=== PATIENT | female | born 1970 | race Caucasian/White ===

== ENCOUNTER → 2021-03-06 11:27 | Outpatient (CLI) | payer MEDICAID, SELFPAY ==
--- NOTE | 2021-03-06 | EMB_PTH ---
PATIENT: TIFFANIE RIVAS LOC: [facility] #:[id number] AGE/SX: 54/F ROOM: RE03/06/[address]: Dr. Cynthia Love MD : 1970 BED: DIS: SPEC #: [id number] RECD: 03/06/21 12:39 STATUS: JOANIE SARA #: [id number] SAUD: 03/06/21 00:[address]: Cynthia Love DEPT: SURGICAL PATHOLOGY RECD BY: Genet Thornton ENTERED: 03/07/21 09:19 SP TYPE: ENDOM BX/C CARMEN DR: No Primary Care Phys Tissues: Endometrium, NOS Procedures: Surgery Specimen Level IV HEADER OPERATION: Endometrial biopsy PRE-OP DIAGNOSIS: Abnormal uterine bleeding TISSUE SUBMITTED: Endometrial biopsy MICROSCOPIC DIAGNOSIS Endometrial biopsy: Secretory endometrium. JOSE:raquel 03/07/2021 MICROSCOPIC DESCRIPTION Slides are reviewed. GROSS DESCRIPTION Received is one container labeled with the patient's name and not further designated. The specimen consists of multiple irregular fragments of gomez-pink soft tissue that in aggregate measure 2.5 x 2.5 x 0.2 cm. The specimen is totally submitted in one cassette. / SJ:raquel 03/06/21 TC:4 CPT: 02819
[2021-03-06 10:21] VITALS: BMI 26.6
[2021-03-06 11:52] LABS: Absolute Lymphocyte Count 1.71 X10^3/uL (0.83-4.51); Absolute Neutrophil Count 4.1 X10^3/uL (2.0-7.7); Basophil# 0.05 X10^3/uL; Basophil% 0.8 % (0-1); Eosinophil# 0.09 X10^3/uL; Eosinophils% 1.4 % (0-5); Hematocrit 42.5 % (37-47); Hemoglobin 13.8 g/dL (12.0-15.0); Lymphocyte # 1.71 X10^3/ul (0.83-4.51); Lymphocyte % 26.4 % (19-41); Mean Corp Hgb Conc 32.5 g/dL (32-36); Mean Corpuscular Hgb 27.7 pg (27.0-32.0); Mean Corpuscular Volume 85.3 fL (81-99); Mean Platelet Vol. 9.9 fl (6.2-12.0); Monocyte# 0.46 X10^3/uL; Monocyte% 7.1 % (0-10); NRBC Flagged by Analyzer 0 % (0-5); Neutrophil # 4.13 X10^3/uL (2.7-7.7); Neutrophil % 63.8 % (47-70); Platelet Count 285 K/mm3 (150-450); RBC Distribution Width CV 12.7 % (11.6-14.6); RBC Distribution Width SD 39.2 fl (35.1-43.9); Red Blood Count 4.98 M/mm3 (4.2-5.4); White Blood Count 6.5 K/mm3 (4.4-11.0)
[2021-03-09 03:06] LABS: Dilute Prothrombin Time (dPT) 31.5 sec (0.0-55.0); Dilute Russell Viper Venom 29.3 sec (0.0-47.0); Thrombin Time 17.6 sec (0.0-23.0); dPT Confirm Ratio 1.08 Ratio (0.00-1.40)
[2021-03-09 08:06] LABS: Anti-Cardiolipin Ab, IgA, Qn < 9 APL U/mL (0-11); Anti-Cardiolipin Ab, IgG, Qn < 9 GPL U/mL (0-14); Anti-Cardiolipin Ab, IgM, Qn < 9 MPL U/mL (0-12); Beta-2-Glycoprotein I IgA <9 (0-25); Beta-2-Glycoprotein I IgG <9 (0-20); Beta-2-Glycoprotein I IgM <9 (0-32); Interpretation Comment: (.)
== END ==
PROVIDERS: Referring Provider Obstetrics & Gynecology; Visit Provider Obstetrics & Gynecology
DX: N93.9 Abnormal uterine and vaginal bleeding, unspecified (principal); N96 Recurrent pregnancy loss
CPT/HCPCS: 36415; 85025; 86146; 86147; 88305

== ENCOUNTER → 2021-03-18 07:44 | Outpatient (CLI) | payer MEDICAID, SELFPAY ==
[2021-03-06 10:21] VITALS: BMI 26.6
--- NOTE | 2021-03-18 07:48 | US_ITS ---
INDICATION: Irregular bleeding. COMPARISON: None. TECHNIQUE: Transabdominal and transvaginal scanning was performed with grayscale and color Doppler imaging. FINDINGS: Uterus: Measures 10.06 x 7.29 x 7.91 cm., With a total volume of 30 3 mL uterus is anteflexed. 4 uterine leiomyomas are identified. The largest of which is subserosal in position measuring 2.91 x 1.8 x 2.1 cm in size. There are 3 smaller uterine leiomyomas are noted adjacent to an exam and partly compressing the endometrial echo stripe and these measure 2.26 x 2.18 and 1.5 x 1.6 and 1.6 x 1.7 cm respectively Endometrium: Measures 10 mm. And is partially compressed by 3 uterine leiomyomas as described above. Right ovary measures 3.4 x 3.5 x 1.9 cm. In this ovary contains a physiologic cyst Left ovary measures 4.1 x 3.7 x 2.2 cm. Free fluid: None. Other findings: None of significance. US/Pelvic (Non ) IMPRESSION: For uterine leiomyomas are identified, 3 of which a tracker stripe. Electronically Signed: Jp Morton DO at 11:35 EDT Tel , Service support ,
--- NOTE | 2021-03-18 07:48 | US_ITS ---
INDICATION: Irregular bleeding. COMPARISON: None. TECHNIQUE: Transabdominal and transvaginal scanning was performed with grayscale and color Doppler imaging. FINDINGS: Uterus: Measures 10.06 x 7.29 x 7.91 cm., With a total volume of 30 3 mL uterus is anteflexed. 4 uterine leiomyomas are identified. The largest of which is subserosal in position measuring 2.91 x 1.8 x 2.1 cm in size. There are 3 smaller uterine leiomyomas are noted adjacent to an exam and partly compressing the endometrial echo stripe and these measure 2.26 x 2.18 and 1.5 x 1.6 and 1.6 x 1.7 cm respectively Endometrium: Measures 10 mm. And is partially compressed by 3 uterine leiomyomas as described above. Right ovary measures 3.4 x 3.5 x 1.9 cm. In this ovary contains a physiologic cyst Left ovary measures 4.1 x 3.7 x 2.2 cm. Free fluid: None. Other findings: None of significance. US/Transvaginal Non- IMPRESSION: For uterine leiomyomas are identified, 3 of which a tracker stripe. Electronically Signed: Jp Morton DO at 11:35 EDT Tel , Service support ,
== END ==
PROVIDERS: Referring Provider Obstetrics & Gynecology; Visit Provider Obstetrics & Gynecology
DX: N93.9 Abnormal uterine and vaginal bleeding, unspecified (principal)
CPT/HCPCS: 76830; 76856

== ENCOUNTER 2021-05-20 07:02 | Day surgery (SDC) | payer BC, MEDICAID, SELFPAY ==
[2021-03-20 16:22] VITALS: BMI 26.6
[2021-05-19 09:06] LABS: Absolute Lymphocyte Count 1.25 X10^3/uL (0.83-4.51); Absolute Neutrophil Count 4.8 X10^3/uL (2.0-7.7); Basophil# 0.04 X10^3/uL; Basophil% 0.6 % (0-1); Eosinophil# 0.14 X10^3/uL; Eosinophils% 2.1 % (0-5); Hematocrit 43.7 % (37-47); Hemoglobin 13.8 g/dL (12.0-15.0); Lymphocyte # 1.25 X10^3/ul (0.83-4.51); Lymphocyte % 18.6 % (19-41); Mean Corp Hgb Conc 31.6 g/dL (32-36); Mean Corpuscular Hgb 26.6 pg (27.0-32.0); Mean Corpuscular Volume 84.2 fL (81-99); Mean Platelet Vol. 10.5 fl (6.2-12.0); Monocyte# 0.45 X10^3/uL; Monocyte% 6.7 % (0-10); NRBC Flagged by Analyzer 0 % (0-5); Neutrophil # 4.83 X10^3/uL (2.7-7.7); Neutrophil % 71.7 % (47-70); Platelet Count 275 K/mm3 (150-450); RBC Distribution Width CV 12.3 % (11.6-14.6); RBC Distribution Width SD 37.2 fl (35.1-43.9); Red Blood Count 5.19 M/mm3 (4.2-5.4); White Blood Count 6.7 K/mm3 (4.4-11.0)
[2021-05-19 09:31] LABS: AST(SGOT) 12 U/L (15-37); Alanine Aminotransfer ALT/SGPT 11 U/L (13-56); Albumin, Serum 3.5 g/dL (3.2-5.0); Alkaline Phosphatase 61 U/L (45-117); Anion Gap 5 (5-15); BUN 17 mg/dL (7-18); BUN/Creat Ratio 17.5 RATIO (10-20); Calcium,Total 8.8 mg/dL (8.5-10.1); Chloride 105 mmol/L (98-107); Creatinine, Serum 0.97 mg/dL (0.55-1.02); EST Glomerular Filtration Rate 65 mL/min (>60); Est Glom Filt Rate - Afr Amer 78 mL/min (>60); Globulin 3.6 g/dL (2.2-4.2); Glucose 243 mg/dL (74-106); Potassium 4.4 mmol/L (3.5-5.1); Protein, Total 7.1 g/dL (6.4-8.2); Sodium Level 138 mmol/L (136-145)
[2021-05-19 09:41] LABS: Thyroid Stim Hormone (TSH) 0.84 uIU/mL (0.358-3.74)
[2021-05-19 09:51] LABS: Hemoglobin A1c 7.2 % (3.8-5.6)
[2021-05-20] VITALS (11 sets, daily range): BP systolic 127–162; BP diastolic 66–94; PULSE 57–70; RESP 14–16; TEMP 35.6–36.4; O2SAT 96–100; BMI 28.6
--- NOTE | 2021-05-20 | HYST_PTH ---
PATIENT: TIFFANIE RIVAS LOC: [facility] U#:[id number] AGE/SX: 50/F ROOM: RE05/20/[address]: Dr. Cynthia Love MD : 1970 BED: DIS: 05/20/2021 SPEC #: [id number] RECD: 05/20/21 13:00 STATUS: JOANIE SARA #: [id number] SAUD: 05/20/21 00:[address]: Cynthia Love DEPT: SURGICAL PATHOLOGY RECD BY: Costa Tian ENTERED: 05/21/21 09:55 SP TYPE: HYSTERECT OTHR DR: Dr. Bhupendra Woodruff MD Tissues: Uterus, NOS Procedures: Surgery Specimen Level V HEADER OPERATION: Hysterectomy, LAVH, salpingectomy PRE-OP DIAGNOSIS: Uterine fibroid, abnormal uterine bleeding TISSUE SUBMITTED: Uterus, bilateral fallopian tubes MICROSCOPIC DIAGNOSIS Uterus and bilateral fallopian tubes, hysterectomy and bilateral salpingectomy: Cervix ? mild chronic inflammation. Endometrium ? secretory endometrium. Myometrium ? intramural leiomyomas (largest measuring 2.5 cm in diameter). - Adenomyosis. Bilateral fallopian tubes - no pathologic diagnosis. Paratubal cyst. SJ:rg 05/22/2021 COMMENT Please make reference to previous specimen ([id number]) endometrial biopsy with diagnosis of ?secretory endometrium.? MICROSCOPIC DESCRIPTION Slides are reviewed. GROSS DESCRIPTION Received in fixative is one container labeled with the patient's name and designated uterus, bilateral fallopian tubes. The specimen consists of a hysterectomy specimen in multiple pieces consisting of uterus with cervix and bilateral fallopian tubes attached to one of the largest pieces. The uterus with cervix weighs 189 gm. The largest piece of uterus shows attached bilateral fallopian tubes and consists of portion of uterus and cervix measuring 13 x 6 x 6 cm. Detached two pieces of uterus measures in aggregate 6.5 x 4 x 1.5 cm. One of the detached pieces consists of portion of cervix and lower uterine segment and measures 7 x 3 x 1.5 cm. Orientation could not be made due to fragmented nature of the specimen. The endocervical canal in the largest piece of uterus measures 4.5 cm in length. The endocervical mucosa is unremarkable. Portion of identifiable ectocervix is also unremarkable. The largest piece of uterus also shows portion of endometrial cavity which measures 5 cm in length and up to 2.5 cm in width. The identifiable endometrium measures 0.3 cm in thickness. No mass lesion is identified. Sections of the uterine wall reveal multiple lobular masses. The largest mass measures 2.5 cm in diameter. Sections of these masses reveal gomez whorled cut surfaces without areas of hemorrhage, necrosis or cystic degeneration. The uterine wall measures up to 3.5 cm in thickness. The fallopian tubes could not be oriented as right or left due to fragmented nature of the specimen. One of the fallopian tubes measure 7 cm in length and up to 0.5 cm in diameter. The fimbrial end is identified. Sections reveal unremarkable cut surfaces. The second fallopian tube measures 6 cm in length and 0.7 cm in diameter. The fimbrial end is identified. A paratubal cyst is noted measuring 0.6 cm in greatest dimension. It is filled with clear fluid. Sections reveal unremarkable cut surfaces. Roof Assembler sections are submitted in 11 cassettes as follows: 1 & 2 - cervix, 3-6 - uterine wall including endomyometrium, 7 - largest nodular mass, 8 - second largest nodular mass, 9 - largest nodular mass, 10??one fallopian tube, 11 - second fallopian tube and paratubal cyst. / JOSE:raquel 05/21/21 TC: 1 CPT: 87046
--- NOTE | 2021-05-20 04:53 | HP.PCM_ITS ---
History and Physical Date of Admission: 05/20/21 Intake Vital Signs 05/12/21 14:07 Height 5 ft 4 in Weight: 172 lb 2 oz BMI 29.5 BP 158/90 H Intake Visit Reasons: ONI LUI Investigative Analyst Required: No Allergies latex Allergy (Verified 05/12/21 14:07) Unknown Penicillins Allergy (Verified 05/12/21 14:07) Rash Imddrhn-Hzl-Jxh Reductase Inhibitor Allergy (Verified 05/12/21 14:07) Rash Medications levothyroxine 50 mcg tablet PO 30 Days #30 02/04/18 [History Confirmed 05/12/21] subcutaneous insulin pump #1 ea 08/28/20 [History Confirmed 05/12/21] insulin lispro 100 unit/mL subcutaneous pen 5 unit SUBCUT TID 03/06/21 [History Confirmed 05/12/21] Post menopausal: No Patient : No : No [facility] Medical History Asthma delivery delivered Diabetes Diabetes HTN (hypertension) Thyroid disease Family History Other Diabetes Hypercholesterolemia Hypertension Social History Smoking Status: Never smoker details: social caffeine: Yes do you feel safe at home: Yes additional social history: Lukasz Michelle Patient works at [employer] Details: TIFFANIE RIVAS is a 50 year old who presents for preop visit she is having a hysterectomy for AUB and fibroids. Female Reproductive History Menopausal Symptoms: No hot flashes, No night sweats, No difficulty concentrating and Yes change in libido Pregancy History 5 Elective abortions Hx Para 2 Spontaneous abortions 3 Hx # Term Pregnancies Ectopic pregnancies Hx # Pregnancies Multiple births # of living children 2 ROS Const Constitutional: Reports weight gain; Denies fatigue, night sweats or weight loss ENT ENT: Reports system reviewed and no additional complaints, except as documented Cardio Card: Denies chest pain Resp Resp: Denies cough or dyspnea GI GI: Reports as per HPI; Denies constipation, nausea or vomiting : Reports as per HPI; Denies hot flashes, nipple discharge, vaginal discharge, vaginal dryness, vaginal odor or vaginal pruritus Musc Musc: Denies arthralgias, back pain or muscle weakness Skin Skin/Breast: Denies alopecia, change in hair, dry skin, breast mass, breast pain, breast skin changes or nipple discharge Neuro Neuro: Reports system reviewed and no additional complaints, except as documented Psych Psych: Reports system reviewed and no additional complaints, except as documented and change in libido; Denies difficulty concentrating Endo Endo: Denies cold intolerance, excessive sweating, heat intolerance or polydipsia Ap/Lymph Hematologic/Lymphatic: Denies easy bleeding, Denies easy bruising and Denies lymphadenopathy Exam Const General: cooperative, healthy appearing, comfortable, no acute distress and well developed Orientation: alert [facility] Head: normal to inspection and normocephalic Ears: hearing grossly normal bilaterally and external ears normal Nose: external nose normal and nares normal Face and sinus: normal facial exam Neck Neck: normal visual inspection and no lymphadenopathy Thyroid: thyroid normal Chest Chest palpation & inspection: normal inspection of the chest Resp Effort & Inspection: normal respiratory effort Auscultation: clear to auscultation bilaterally Cardio Rate: regular rate Rhythm: regular rhythm Heart Sounds: S1 normal and S2 normal GI Inspection: normal to inspection and non-distended Palpation: soft and no hepatosplenomegaly Urethra: no discharge Musc Other: gross motor intact no deficits, full bilateral strength Skin General: no rashes or lesions noted Neuro General: patient alert, patient awake, moves all extremities and no focal motor deficits Motor: muscle tone normal throughout Extrem General: normal to inspection and no pedal edema Psych Appearance: grossly normal Mental Status: mental status grossly normal Affect: normal affect Speech and Movement: speech and movement normal Coding Level of Care Code No Charge Diagnoses Diabetes E11.9 Uterine fibroid D25.9 Abnormal uterine bleeding N93.9 Assessment and Plan Assessment and Plan (1) Diabetes: Status: Acute Comment: prior to surgery run insulin pump at 40% temporarily for 24 hours. resume when able to eat (2) Uterine fibroid: Status: Acute Comment: enlarged uterus multiple fibroids (3) Abnormal uterine bleeding: Status: Acute Comment: failed hormonal treatments with Dr Sandoval. fibroids. recommend [facility] Plan - Dr. Cynthia Love MD: After discussing the patient's diagnosis and treatment plan options, patient wishes to proceed with surgical management. I have discussed with the patient the risks, benefits, and alternatives of the procedure which include but are not limited to risks of anesthesia, bleeding, infection, possible damage to bowel, bladder, or surrounding vasculature which could lead to additional surgery to evaluate any complications. Patient agrees to procedure and wishes to proceed. ACOG/uptodate references given for additional information regarding procedure. UPDATE- I have seen the patient and performed any clinically relevant updates to the history and physical exam. Cynthia Love MD
[2021-05-20 07:46] LABS: Bedside Glucose 288 mg/dL (70-110)
[2021-05-20 07:46] LABS: Internal QC Validated? YES +Cl - CLEAR BKGD; Pregnancy, Urine Negative Negative
[2021-05-20] MEDS: Lactated Ringers 1,000 ML 40 ML IV (07:53)
[2021-05-20] MEDS: Scopolamine 1mg/72hr Patch 1 PATCH TD (07:58)
[2021-05-20] MEDS: Celecoxib 200 MG Capsule 400 MG PO (07:59)
[2021-05-20] MEDS: Gabapentin 600 MG Tablet PO (07:59)
[2021-05-20] MEDS: Acetaminophen 500 MG Tablet 1000 MG PO ×2 (07:59→13:45)
[2021-05-20] MEDS: dexAMETHasone 10 MG/ML Vial 8 MG IV (08:00)
[2021-05-20] MEDS: Enoxaparin 40 MG/0.4 ML Syringe SC (08:00)
[2021-05-20] MEDS: Phenazopyridine 95 MG Tablet 190 MG PO (08:00)
[2021-05-20] MEDS: Vasopressin 20 UNITS/ML Vial (11:00)
[2021-05-20] MEDS: Bupivacaine 0.25% 30 ML Vial (11:30)
--- NOTE | 2021-05-20 11:54 | OP.PCM_ITS ---
Problems Associated Problem List Diagnoses (1) Abnormal uterine bleeding: (2) Uterine fibroid: (3) Diabetes: Report of Operation Date of Procedure: 05/20/21 Pre-Operative Diagnosis: See problem list Post-Operative Diagnosis: same plus extensive vesicouterine scar tissue Surgery/Procedure Performed:: LAVHBS cystoscopy Description of Surgical Findings:: Dense vesicouterine adhesions enlarged fibroid uterus limited vaginal access cardiopulmonary supervisor: Kelly Hutchinson Type of Anesthesia: General Special Medications: FloSeal Specimen's removed: uterus, tubes Drains: hunter Estimated Blood Loss (mL): 150 Fluids Replaced: crystalloid Description of Procedure: Patient received preoperative antibiotics and SCDs were on preoperatively. Patient was taken back to the operating room and placed in the dorsal lithotomy position. General anesthesia was induced and patient was prepped and draped in normal sterile fashion. Uterine manipulator was placed inside the uterus and Hunter catheter placed in the bladder. The umbilicus was grasped with towel clamps and an intraumbilical incision was made after injecting with quarter percent Marcaine and a Veress needle entered into the abdomen confirmed to be intra-abdominal with a low opening pressure. Abdomen was insufflated with CO2 gas and the Veress needle removed and the 5 mm trocar was placed under direct visualization without complication. Right and left lower quadrants were transilluminated and injected with quarter percent Marcaine and 5 mm ports placed under direct visualization. Pelvis was well visualized see operative findings for additional information. Bilateral fallopian tubes were identified and transected with the LigaSure device across the mesosalpinx to the level of the utero-ovarian ligament which was also transected with the LigaSure device. The broad ligament was opened up by transecting the round ligament bilaterally and skeletonizing the uterine vessels bilaterally and creating a bladder flap using the LigaSure device. Extensive scar tissue was encountered which was taken down with hydrodissection and sharp dissection with scissors and monopolar energy. The uterine arteries were transected bilaterally with good visualization of the bladder and the ureters were seen to be inferior lateral to the operative area. Attention was then paid to the vaginal portion of the procedure and the cervix was grasped with Vern clamps and circumferentially injected with dilute vasopressin. A circumferential incision was made and the vaginal mucosa was mobilized off posteriorly and the cul-de-sac entered into sharply and a longneck speculum placed. The anterior cul-de-sac was then identified and entered into sharply. The uterosacral ligaments were clamped cut and suture ligated with 0 Monocryl bilaterally followed by the cardinal ligaments which were clamped cut and suture ligated bilaterally with 0 Monocryl. The uterus serially descended and was removed without difficulty. Pelvic sidewall pedicles were checked and noted to have excellent hemostasis. The vaginal mucosa was reapproximated incorporating the posterior peritoneum. This was reapproximated using 0 Vicryl tyfavm-jz-jcgmc sutures. Excellent hemostasis was noted. The pelvis and cul-de-sac were well visualized and after additional cautery with LigaSure no significant active bleeding noted but some raw areas were seen on the peritoneum and therefore FloSeal was applied. The cystoscopy was then performed and bilateral ureteral strong spray was noted and the bladder was noted to have no abnormality or lesions seen. Hunter catheter was replaced and then attention paid to the abdominal portion of the procedure again. Pressure was taken down and the areas visualized and noted of excellent hemostasis. All ports were removed under direct visualization without complication and the abdomen was desufflated of air. The instruments were removed from the abdomen and the vaginal sweep was negative. Port sites on the abdomen were closed with 4-0 Monocryl interrupted sutures and Steri's and windows were applied. She was awoken and taken recovery in stable condition. Grafts/Implants Used: none Complications none Admit VTE Documentation VTE Present on Admission: No VTE Mechan Device Prophylaxis: SCD's VTE Pharm Prophylaxis ordered?: Yes Multi Select Codes Urinary/Genital Urinary/Genital CPT Codes: 82615 Cystoscopy and 98782 LAVH+BS/O <250gr Uterus
[2021-05-20] MEDS: Ketorolac 30 MG/ML Syringe IV (12:00)
[2021-05-20] MEDS: Lactated Ringers 1,000 ML 70 ML IV (12:20)
--- NOTE | 2021-05-20 14:41 | DCINST_ITS ---
Discharge Instructions Diet Discharge Diet: No restrictions Activity May resume sexual activity in: 6 weeks Weight Bearing Status: Full weight bearing Dressing / Incision Call your doctor if your incision/area has: Continuous Slow Oozing, Sudden Increased Bleeding, Increased Pain/ Swelling, Increased Redness and Foul Smelling Discharge Call your doctor if you observe: Fever of 101 or Higher, Using more than 1 pad per hour, Shortness of breath, Chest pain and Uncontrolled pain Suture Line Care: Avoid Pulling/Pushing and Avoid Pinching/Bending Remove Dressing in: 1 week (if present) Cleanse incision/area with: Soap & Water and Keep Dressing Clean & Dry Follow Up Care Please Follow Up With: Cynthia Love MD When: Call to make an appointment with your doctor for a postop visit in 2 and 6 weeks. Test Results: Test results from this visit will be discussed in further detail at your follow-up appointment, if applicable. Discharge Plan Admission Primary Reason for Your Visit: vaginal hysterectomy Attending Provider: Cynthia Love Primary Care Provider: Bhupendra Woodruff Discharge Orders/Prescriptions Prescriptions: New naproxen 250 MG tablet 250 - 500 mg PO Q8H PRN PRN (Reason: MILD PAIN) Qty: 30 RF: 1 oxycodone-acetaminophen [Endocet] 5-325 mg tablet 1 tab PO Q4H PRN (Reason: pain) 7 Days Qty: 20 RF: 0 Continued levothyroxine 50 mcg tablet 50 mcg PO DAILY 30 Days Qty: 30 RF: 0 (DME) subcutaneous insulin pump Misc See Rx Instructions .ROUTE .MEDSUPPLY Qty: 1 RF: 0 multivitamin Tablet 1 tab PO DAILY RF: 0 insulin lispro 100 unit/mL solution 3 unit continuous IV infusion DAILY RF: 0 cholecalciferol (vitamin D3) [Vitamin D3] 25 mcg (1,000 unit) Tablet,Chewable 25 mcg PO DAILY RF: 0 Other Ambulatory Orders: 12 Lead EKG (Routine) Timeframe: [id number] Facility: [facility] - Location: Cardiovascular Services Ordered By: Dr. Cynthia Love Referrals / Follow Up: Bhupendra Woodruff MD [Primary Care Provider] - Disposition Disposition (needs filled in before D/C Order can be placed): Home, Self Care
[2021-05-20 14:52] LABS: Hematocrit 38.2 % (37-47); Hemoglobin 12.6 g/dL (12.0-15.0); Mean Corpuscular Hgb 27.2 pg (27.0-32.0); Mean Corpuscular Volume 82.3 fL (81-99); Mean Platelet Vol. 10.3 fl (6.2-12.0); Platelet Count 240 K/mm3 (150-450); RBC Distribution Width CV 12.4 % (11.6-14.6); RBC Distribution Width SD 37.2 fl (35.1-43.9); Red Blood Count 4.64 M/mm3 (4.2-5.4); White Blood Count 12.3 K/mm3 (4.4-11.0)
[2021-05-20] MEDS: oxyCODONE 5 MG Tablet PO (15:42)
--- NOTE | 2021-05-26 12:31 | EKG12_ITS ---
Test Reason : PRE OP Blood Pressure : / mmHG Vent. Rate : 070 BPM Atrial Rate : 070 BPM P-R Int : 126 ms QRS Dur : 052 ms QT Int : 364 ms P-R-T Axes : 057 084 068 degrees QTc Int : 393 ms Normal sinus rhythm Low voltage QRS Septal infarct , age undetermined Abnormal ECG Confirmed by JACE MINER, CONSUELO ([id number]), newspaper copy editor YUN GARCIA ([id number]) on 05/26/2021 12:35:05 PM Referred By: Cynthia Love Confirmed By:LEONCIO MCCORMICK MD
== END 2021-05-20 16:32 | disposition home or self-care (01) ==
LOC: SDC 07:03 → AC 07:04
PROVIDERS: Anesthesiology; PCP Family Medicine; Referring Provider Obstetrics & Gynecology; Visit Provider Obstetrics & Gynecology
PROC: 0UT9FZZ Resection of Uterus, Via Natural or Artificial Opening With Percutaneous Endoscopic Assistance (ICD-10-PCS; CPT 58552; principal; 2021-05-20 08:35)
DX: D25.1 Intramural leiomyoma of uterus (principal); N93.9 Abnormal uterine and vaginal bleeding, unspecified; I10 Essential (primary) hypertension; E11.9 Type 2 diabetes mellitus without complications; K21.9 Gastro-esophageal reflux disease without esophagitis; E07.9 Disorder of thyroid, unspecified; E78.00 Pure hypercholesterolemia, unspecified; J45.909 Unspecified asthma, uncomplicated; Z79.4 Long term (current) use of insulin; Z79.899 Other long term (current) drug therapy
CPT/HCPCS: 00944; 58552; 36415; 80053; 81025; 82962; 83036; 83735; 84443; 85025; 85027; 86850; 86900; 86901; 87426; 88307; 93005; C9803; J7120; J2405

== ENCOUNTER → 2021-06-09 | Outpatient (CLI) | payer BC, MEDICAID, SELFPAY | END | disposition home or self-care (01) | LOC: LABSPEC 12:12 | PROVIDERS: PCP Family Medicine; Referring Provider Nurse Practitioner Women's Health; Visit Provider Nurse Practitioner Women's Health | DX: R39.15 Urgency of urination (principal) | CPT/HCPCS: 87077; 87086; 87088; 87186 ==

== ENCOUNTER → 2021-06-23 | Outpatient (CLI) | payer BC, MEDICAID, SELFPAY | END | disposition home or self-care (01) | LOC: LABSPEC 13:47 | PROVIDERS: PCP Family Medicine; Visit Provider Obstetrics & Gynecology | DX: N89.8 Other specified noninflammatory disorders of vagina (principal) | CPT/HCPCS: 87070; 87077; 87205 ==

== ENCOUNTER → 2021-06-25 09:20 | Outpatient (CLI) | payer BC, MEDICAID, SELFPAY ==
--- NOTE | 2021-06-25 09:23 | BI_ITS ---
MAMMOGRAPHY - BILATERAL SCREENING REASON FOR EXAM: Female, 50 years old. Routine annual screening examination. PERTINENT HISTORY: Non-contributory. TECHNIQUE: Digital bilateral breast brandi (3D mammographic acquisition) in the CC and MLO projections. 2-D mediolateral oblique (MLO) and craniocaudad (CC) views of both breasts were obtained. CAD: Full Field Digital Mammography with Computer Added Detection was performed. COMPARISON: Comparison is made with prior outside examination dated 03/06/2020. FINDINGS: Breast Composition: The breasts are heterogeneously dense, which may obscure small masses. There is a stable 1.8 cm x 1.2 cm well-defined nodule in the inferior medial retroareolar region of the right breast. Correlation with ultrasound is recommended. No other significant abnormalities are identified. BI/SCRN MAMM (CAD)W/BRANDI BILAT IMPRESSION: Stable 1.8 cm x 1.2 cm well-defined nodule in the inferior medial retroareolar region of the right breast. Correlation with ultrasound is recommended. ASSESSMENT CATEGORY: BIRADS Category 0: Incomplete. Need additional imaging evaluation. A letter regarding these results will be sent to the patient by the facility within 30 days. Approximately 10% of breast cancers are not detected by mammography. A normal mammogram should not delay biopsy of a clinically suspicious abnormality. [id number] Electronically Signed: Fredrick Trujillo MD at 10:26 EST , Service support ,
== END ==
PROVIDERS: PCP Family Medicine; Referring Provider Obstetrics & Gynecology; Visit Provider Obstetrics & Gynecology
DX: Z12.31 Encounter for screening mammogram for malignant neoplasm of breast (principal)
CPT/HCPCS: 77063; 77067

== ENCOUNTER → 2021-06-27 10:52 | Outpatient (CLI) | payer BC, MEDICAID, SELFPAY ==
--- NOTE | 2021-06-27 10:54 | US_ITS ---
STUDY: ULTRASOUND BREAST - RIGHT REASON FOR EXAM: Female, 50 years old. Abnormal screening mammogram. TECHNIQUE: Axial and longitudinal images of the RIGHT breast were performed with a high resolution ultrasound transducer. # OF IMAGES: 21 COMPARISON: Comparison is made with prior mammogram dated 06/25/2021. FINDINGS: RIGHT Breast: The mammographic abnormality corresponds to a 2.1 cm x 1.7 cm x 1 cm hypoechoic slightly irregular nodule at the 3 o''clock position the breast in the retroareolar region. Biopsy is recommended. US/Breast Limited Unilateral IMPRESSION: 2.1 cm x 1.7 cm by 1 cm hypoechoic solid nodule with lobulated margins at the 3 o''clock position of the breast in the retroareolar region. Biopsy recommended. ASSESSMENT CATEGORY: BIRADS Category 4: Suspicious - Biopsy Should Be Considered. A letter regarding these results will be sent to the patient by the facility within 30 days. Electronically Signed: Fredrick Trujillo MD at 13:33 EST , Service support ,
== END ==
PROVIDERS: PCP Family Medicine; Referring Provider Obstetrics & Gynecology; Visit Provider Obstetrics & Gynecology
DX: N63.10 Unspecified lump in the right breast, unspecified quadrant (principal)
CPT/HCPCS: 76642

== ENCOUNTER → 2021-07-04 | Outpatient (CLI) | payer BC, MEDICAID, SELFPAY ==
--- NOTE | 2021-07-04 14:30 | BRBX_PTH ---
PATIENT: TIFFANIE RIVAS LOC: [facility] U#:[id number] AGE/SX: 50/F ROOM: RE07/04/[address]: Dr. Chino Salgado MD : 1970 BED: DIS: 07/04/2021 SPEC #: [id number] RECD: 07/04/21 15:53 STATUS: JOANIE SARA #: [id number] SAUD: 07/04/21 14:[address]: Chino Salgado DEPT: SURGICAL PATHOLOGY RECD BY: Genet Thornton ENTERED: 07/07/21 09:09 SP TYPE: BREAST BX OTHR DR: Dr. Bhupendra Woodruff MD Tissues: Right breast, NOS Procedures: Surgery Specimen Level IV HEADER OPERATION: Right breast biopsy PRE-OP DIAGNOSIS: Right breast mass TISSUE SUBMITTED: Right breast tissue MICROSCOPIC DIAGNOSIS Right breast, core biopsy: Fragments of hyalinized fibroadenoma. AM:raquel 07/08/2021 MICROSCOPIC DESCRIPTION Slides are reviewed. GROSS DESCRIPTION Received in fixative is one container labeled with the patient's name and designated right breast. The specimen consists of multiple elongated fragments of gomez-yellow fibroadipose tissue that in aggregate measure 2 x 1.5 x 0.1 cm. The entire specimen is submitted in one cassette. / SJ:rg 07/07/21 TC:5 CPT: 69020
== END | disposition home or self-care (01) ==
PROVIDERS: PCP Family Medicine; Referring Provider Surgery; Visit Provider Surgery
DX: D24.1 Benign neoplasm of right breast (principal)
CPT/HCPCS: 88305

== ENCOUNTER 2021-10-15 09:54 | Outpatient (CLI) | payer BC, MEDICAID, SELFPAY ==
[2021-10-15 11:03] LABS: EXAGEN MAILED SPECIMEN
[2021-10-15 11:58] LABS: Color, Urine Yellow (Yellow); Glucose, Dipstick 1000 mg/dl (Normal); Ketone-Dipstick Negative (Negative); Leukocyte Esterase-Dipstick Negative /ul (Negative); Nitrite-Dipstick Negative (Negative); Occult Blood-Urine Negative /ul (Negative); Protein-Dipstick Negative (Negative); Urine Bilirubin Dipstick Negative (Negative); Urine Clarity Clear (Clear); Urine Urobilinogen Normal (Normal)
[2021-10-15 12:06] LABS: Partial Thromboplast Time 30.1 Seconds (24.1-36.2); Prothrombin Time (Protime)PT. 12.2 SECONDS (11.7-14.9)
[2021-10-15 12:11] LABS: Protein:Creat Ratio 112 mg/g CRE (0-200)
[2021-10-15 12:18] LABS: ALB/GLOB Ratio 1.1 RATIO (0.9-2.4); AST(SGOT) 13 U/L (15-37); Alanine Aminotransfer ALT/SGPT 14 U/L (13-56); Albumin, Serum 3.5 g/dL (3.2-5.0); Alkaline Phosphatase 68 U/L (45-117); Anion Gap 3 (5-15); BUN 15 mg/dL (7-18); BUN/Creat Ratio 16.8 RATIO (10-20); CRP < 2.90 mg/L (0.0-3.0); Calcium,Total 8.3 mg/dL (8.5-10.1); Chloride 105 mmol/L (98-107); Creatinine, Serum 0.89 mg/dL (0.55-1.02); EST Glomerular Filtration Rate 71 mL/min (>60); Est Glom Filt Rate - Afr Amer 86 mL/min (>60); Globulin 3.2 g/dL (2.2-4.2); Glucose 194 mg/dL (74-106); Potassium 4.2 mmol/L (3.5-5.1); Protein, Total 6.7 g/dL (6.4-8.2); Sodium Level 139 mmol/L (136-145)
[2021-10-15 12:23] LABS: Erythrocyte Sedimentation Rate 7 mm/hr (0-30)
[2021-10-15 12:24] LABS: Absolute Lymphocyte Count 1.41 X10^3/uL (0.83-4.51); Absolute Neutrophil Count 3.9 X10^3/uL (2.0-7.7); Basophil# 0.03 X10^3/uL; Basophil% 0.5 % (0-1); Eosinophil# 0.11 X10^3/uL; Eosinophils% 1.9 % (0-5); Hematocrit 43.4 % (37-47); Hemoglobin 14.9 g/dL (12.0-15.0); Lymphocyte # 1.41 X10^3/ul (0.83-4.51); Lymphocyte % 24.1 % (19-41); Mean Corp Hgb Conc 34.3 g/dL (32-36); Mean Corpuscular Hgb 28.9 pg (27.0-32.0); Mean Corpuscular Volume 84.1 fL (81-99); Mean Platelet Vol. 10.8 fl (6.2-12.0); Monocyte% 6.8 % (0-10); NRBC Flagged by Analyzer 0 % (0-5); Neutrophil # 3.88 X10^3/uL (2.7-7.7); Neutrophil % 66.2 % (47-70); Platelet Count 278 K/mm3 (150-450); RBC Distribution Width CV 13.1 % (11.6-14.6); RBC Distribution Width SD 39.9 fl (35.1-43.9); Red Blood Count 5.16 M/mm3 (4.2-5.4); White Blood Count 5.9 K/mm3 (4.4-11.0)
[2021-10-15 12:52] LABS: Hepatitis B Surface Antibody Non-Reactive; Hepatitis B Surface Antigen Non-Reactive (Nonreactive); Hepatitis C Antibody Non-Reactive (Nonreactive)
[2021-10-17 02:07] LABS: Dilute Prothrombin Time (dPT) 35.2 sec (0.0-47.6); Dilute Russell Viper Venom 31.1 sec (0.0-47.0); Hexagonal Phase Phospholipid 4 sec (0-11); PTT-LA 34.3 sec (0.0-51.9); Thrombin Time 17.6 sec (0.0-23.0); dPT Confirm Ratio 0.98 Ratio (0.00-1.34)
[2021-10-17 15:21] LABS: Interpretation Comment: (.); Thrombin Time 17.6 sec (0.0-23.0)
== END 2021-10-15 23:59 | disposition home or self-care (01) ==
LOC: MTLAB 09:56
PROVIDERS: PCP Family Medicine; Referring Provider Internal Medicine Rheumatology; Visit Provider Internal Medicine Rheumatology
DX: M06.4 Inflammatory polyarthropathy (principal); E10.9 Type 1 diabetes mellitus without complications; R76.8 Other specified abnormal immunological findings in serum; M72.2 Plantar fascial fibromatosis; L80 Vitiligo; K58.1 Irritable bowel syndrome with constipation
CPT/HCPCS: 36415; 80053; 81002; 82570; 84156; 85025; 85598; 85610; 85652; 85670; 85730; 86140; 86706; 86803; 87340

== ENCOUNTER → 2022-01-07 | Outpatient (CLI) | payer BC, MEDICAID, SELFPAY ==
--- NOTE | 2022-01-07 13:19 | BI_ITS ---
MAMMOGRAPHY - UNILATERAL SCREENING: RIGHT BREAST REASON FOR EXAM: Female, 51 years old. Routine annual screening examination (unilateral). PERTINENT HISTORY: Non-contributory. TECHNIQUE: Digital examination. Mediolateral oblique (MLO) and craniocaudad (CC) views of the breast were obtained. CAD: CAD was performed on this study. COMPARISON: 06/25/2021 FINDINGS: Breast Composition: The breasts are heterogeneously dense, which may obscure small masses. No change in 1.5 cm oval obscured equal density mass in the lower inner quadrant of the right breast at anterior depth which has been biopsied with a marking clip. No new dominant mass. No suspicious calcifications. No other significant abnormalities are identified. BI/DIAG MAMM W/CAD, UNILAT IMPRESSION: Stable bilateral screening mammogram. ASSESSMENT CATEGORY: BIRADS Category 2: Benign. A letter regarding these results will be sent to the patient by the facility within 30 days. FOLLOW UP RECOMMENDATION: Yearly follow up mammogram recommended. (A) [id number] Approximately 10% of breast cancers are not detected by mammography. A normal mammogram should not delay biopsy of a clinically suspicious abnormality. [id number] Electronically Signed: Arden Polanco MD at 14:05 EDT ,
== END | disposition home or self-care (01) ==
LOC: OPBI 13:17
PROVIDERS: PCP Family Medicine; Visit Provider Surgery
DX: N63.10 Unspecified lump in the right breast, unspecified quadrant (principal)
CPT/HCPCS: 77061; 77065; G0279

== ENCOUNTER → 2022-01-20 | Outpatient (CLI) | payer BC, MEDICAID, SELFPAY ==
[2022-01-20 17:12] LABS: Absolute Lymphocyte Count 1.81 X10^3/uL (0.83-4.51); Absolute Neutrophil Count 4.1 X10^3/uL (2.0-7.7); Basophil# 0.05 X10^3/uL; Basophil% 0.8 % (0-1); Eosinophil# 0.17 X10^3/uL; Eosinophils% 2.6 % (0-5); Hematocrit 40.7 % (37-47); Lymphocyte # 1.81 X10^3/ul (0.83-4.51); Lymphocyte % 27.3 % (19-41); Mean Corp Hgb Conc 34.4 g/dL (32-36); Mean Corpuscular Hgb 28.9 pg (27.0-32.0); Mean Corpuscular Volume 83.9 fL (81-99); Mean Platelet Vol. 10.7 fl (6.2-12.0); Monocyte# 0.51 X10^3/uL; Monocyte% 7.7 % (0-10); NRBC Flagged by Analyzer 0 % (0-5); Neutrophil # 4.08 X10^3/uL (2.7-7.7); Neutrophil % 61.3 % (47-70); Platelet Count 263 K/mm3 (150-450); RBC Distribution Width CV 12.3 % (11.6-14.6); RBC Distribution Width SD 37.2 fl (35.1-43.9); Red Blood Count 4.85 M/mm3 (4.2-5.4); White Blood Count 6.6 K/mm3 (4.4-11.0)
[2022-01-20 18:01] LABS: ALB/GLOB Ratio 1.1 RATIO (0.9-2.4); AST(SGOT) 18 U/L (15-37); Alanine Aminotransfer ALT/SGPT 18 U/L (13-56); Albumin, Serum 3.3 g/dL (3.2-5.0); Alkaline Phosphatase 74 U/L (45-117); Anion Gap 4 (5-15); BUN 18 mg/dL (7-18); BUN/Creat Ratio 20.8 RATIO (10-20); Calcium,Total 8.8 mg/dL (8.5-10.1); Chloride 105 mmol/L (98-107); Creatinine, Serum 0.86 mg/dL (0.55-1.02); EST Glomerular Filtration Rate 74 mL/min (>60); Est Glom Filt Rate - Afr Amer 89 mL/min (>60); Globulin 3.1 g/dL (2.2-4.2); Glucose 133 mg/dL (74-106); Potassium 4.1 mmol/L (3.5-5.1); Protein, Total 6.4 g/dL (6.4-8.2); Sodium Level 139 mmol/L (136-145)
== END | disposition home or self-care (01) ==
LOC: LAB 15:44
PROVIDERS: PCP Family Medicine; Referring Provider Internal Medicine Rheumatology; Visit Provider Internal Medicine Rheumatology
DX: M06.4 Inflammatory polyarthropathy (principal); E10.9 Type 1 diabetes mellitus without complications; R76.8 Other specified abnormal immunological findings in serum; M72.2 Plantar fascial fibromatosis; L80 Vitiligo; K58.1 Irritable bowel syndrome with constipation; E03.9 Hypothyroidism, unspecified; E78.5 Hyperlipidemia, unspecified; F32.A Depression, unspecified; Z86.2 Personal history of diseases of the blood and blood-forming organs and certain disorders involving the immune mechanism
CPT/HCPCS: 36415; 80053; 85025

== ENCOUNTER → 2023-02-03 | Outpatient (CLI) | payer BC, MEDICAID, SELFPAY ==
--- NOTE | 2023-02-03 15:38 | BI_ITS ---
MAMMOGRAPHY - BILATERAL SCREENING REASON FOR EXAM: Female, 52 years old. Routine annual screening examination. PERTINENT HISTORY: Sister with breast cancer. Right breast biopsy. TECHNIQUE: Digital bilateral breast brandi (3D mammographic acquisition) in the CC and MLO projections. 2-D mediolateral oblique (MLO) and craniocaudad (CC) views of both breasts were obtained. CAD: Full Field Digital Mammography with Computer Added Detection was performed. COMPARISON: Diagnostic right breast mammogram from 01/07/2022. Screening mammogram from 06/25/2021. Right breast diagnostic ultrasound from 06/27/2021. FINDINGS: Breast Composition: The breasts are heterogeneously dense, which may obscure small masses. Stable 2.0 x 1.4 cm mass in the right lower inner breast with biopsy marker in place. No new suspicious masses or suspicious calcifications. No other significant abnormalities are identified. There has been no significant change since the prior study. BI/SCRN MAMM (CAD)W/BRANDI BILAT IMPRESSION: Stable bilateral screening mammogram. Yearly follow-up mammogram recommended. (A) ASSESSMENT CATEGORY: BIRADS Category 2: Benign. A letter regarding these results will be sent to the patient by the facility within 30 days. Approximately 10% of breast cancers are not detected by mammography. A normal mammogram should not delay biopsy of a clinically suspicious abnormality. Electronically Signed: Nelson Norton DO at 15:39 EDT ,
== END | disposition home or self-care (01) ==
LOC: OPBI 15:36
PROVIDERS: PCP Family Medicine; Referring Provider Obstetrics & Gynecology; Visit Provider Obstetrics & Gynecology
DX: Z12.31 Encounter for screening mammogram for malignant neoplasm of breast (principal); Z80.3 Family history of malignant neoplasm of breast
CPT/HCPCS: 77063; 77067

== ENCOUNTER → 2023-07-20 | Outpatient (CLI) | payer BC, SELFPAY ==
--- NOTE | 2023-07-20 08:53 | BI_ITS ---
MAMMOGRAPHY - BILATERAL DIAGNOSTIC REASON FOR EXAM: Female, 52 years old. One month history of right retroareolar breast pain. PERTINENT HISTORY: Sister with breast cancer. Prior right ultrasound-guided breast biopsy. TECHNIQUE: Digital bilateral breast haroon (3D mammographic acquisition) in the CC and MLO projections. 2-D mediolateral oblique (MLO) and craniocaudad (CC) views of both breasts were obtained. CAD: Full Field Digital Mammography with Computer Added Detection was performed. COMPARISON: Comparison is made with prior study February 03, 2023 and January 07, 2022. FINDINGS: Breast Composition: The breasts are heterogeneously dense, which may obscure small masses. Stable 2 cm x 1.4 cm well-defined nodule in the retroareolar region of the right breast. A tissue clip marker seen within it. No other significant abnormalities are identified. There has been no significant change since the prior study. BI/DIAG MAMM W/CAD, BILAT IMPRESSION: Stable bilateral diagnostic mammogram. One year follow-up recommended. (A) ASSESSMENT CATEGORY: BIRADS Category 2: Benign. A letter regarding these results will be sent to the patient by the facility within 30 days. Approximately 10% of breast cancers are not detected by mammography. A normal mammogram should not delay biopsy of a clinically suspicious abnormality. Electronically Signed: Fredrick Trujillo MD at 12:21 EST ,
--- NOTE | 2023-07-20 09:36 | US_ITS ---
STUDY: ULTRASOUND BREAST - RIGHT REASON FOR EXAM: Female, 52 years old. Right breast tenderness. TECHNIQUE: Axial and longitudinal images of the RIGHT breast were performed with a high resolution ultrasound transducer. # OF IMAGES: 31 COMPARISON: Comparison is made with prior mammogram dated July 20, 2023 and prior sonogram of the right breast dated June 27, 2021. FINDINGS: RIGHT Breast: There is a 1.9 cm x 1.8 cm x 1 cm well-defined hypoechoic nodule at the 3:00 position of the breast at 1 cm from nipple. A tissue clip marker is seen within it. This most likely represents a fibroadenoma. US/Breast Limited Unilateral IMPRESSION: The mammographic abnormality corresponds to a well-defined 1.9 cm x 1.8 cm x 1 cm hypoechoic nodule with a tissue clip marker within it. ASSESSMENT CATEGORY: BIRADS Category 2: Benign. A letter regarding these results will be sent to the patient by the facility within 30 days. Electronically Signed: Fredrick Trujillo MD at 12:39 EST ,
== END | disposition home or self-care (01) ==
PROVIDERS: PCP Family Medicine; Referring Provider Obstetrics & Gynecology; Visit Provider Obstetrics & Gynecology
DX: N64.4 Mastodynia (principal)
CPT/HCPCS: 76642; 77062; 77066; G0279

== ENCOUNTER → 2024-04-03 | Outpatient (CLI) | payer OTHER, SELFPAY ==
[2024-04-03 10:07] LABS: ALB/GLOB Ratio 1.1 RATIO (0.9-2.4); AST(SGOT) 17 U/L (15-37); Alanine Aminotransfer ALT/SGPT 17 U/L (13-56); Albumin, Serum 3.3 g/dL (3.2-5.0); Alkaline Phosphatase 70 U/L (45-117); Anion Gap 1 (5-15); BUN 16 mg/dL (7-18); BUN/Creat Ratio 19.3 RATIO (10-20); Calcium,Total 8.9 mg/dL (8.5-10.1); Chloride 109 mmol/L (98-107); Cholesterol 200 mg/dL (200); Creatinine, Serum 0.83 mg/dL (0.55-1.02); EST Glomerular Filtration Rate 77 mL/min (>60); Est Glom Filt Rate - Afr Amer 93 mL/min (>60); Globulin 2.9 g/dL (2.2-4.2); Glucose 119 mg/dL (74-106); High Density Lipoprotein 59 mg/dL; Potassium 4.4 mmol/L (3.5-5.1); Protein, Total 6.2 g/dL (6.4-8.2); Sodium Level 141 mmol/L (136-145); T4 Free Direct 1.04 ng/dL (0.76-1.46); Triglycerides 60 mg/dL; Very Low Density Lipoprotein 12 mg/dL (5-40)
== END | disposition home or self-care (01) ==
PROVIDERS: Referring Provider Internal Medicine Endocrinology, Diabetes & Metabolism; Visit Provider Internal Medicine Endocrinology, Diabetes & Metabolism
DX: E10.65 Type 1 diabetes mellitus with hyperglycemia (principal); E55.9 Vitamin D deficiency, unspecified; E03.9 Hypothyroidism, unspecified
CPT/HCPCS: 36415; 80053; 80061; 82306; 84439; 84443

== ENCOUNTER → 2024-05-04 | Outpatient (CLI) | payer OTHER, SELFPAY ==
--- NOTE | 2024-05-04 15:41 | US_ITS ---
STUDY: THYROID ULTRASOUND REASON FOR EXAM: Female, 53 years old. thyroid enlargement TECHNIQUE: Ultrasound evaluation of the thyroid was performed with real-time and static painting-scale imaging. COMPARISON: None. FINDINGS: RIGHT LOBE: The right lobe of the thyroid gland measures 5.1 x 1.7 x 1.6 cm. There is a heterogeneous echotexture. Nodule 1:8 x 5 x 6 mm solid hypoechoic wider than tall ill-defined margin nodule with no echogenic foci (TR 4) in the posterior right lobe consistent with an adenoma. Nodule 2:7 x 5 x 6 mm solid hypoechoic wider than tall ill-defined margin nodule with no echogenic foci (TR 4) in the posterior right lobe consistent with an adenoma. LEFT LOBE: The left lobe of the thyroid gland measures 4.0 x 1.4 x 1.6 cm. There is a heterogeneous echotexture. There are no demonstrated solid, cystic or complex lesions. ISTHMUS: The isthmus measures 3 mm thick. . The regional lymph nodes are normal. US/Thyroid IMPRESSION: Thyroiditis with small adenomas of the right lobe. Electronically Signed: Arden Polanco MD at 21:20 EDT ,
== END | disposition home or self-care (01) ==
LOC: US 15:40
PROVIDERS: Referring Provider Nurse Practitioner Family; Visit Provider Nurse Practitioner Family
DX: E04.9 Nontoxic goiter, unspecified (principal)
CPT/HCPCS: 76536

== ENCOUNTER → 2024-08-11 | Outpatient (CLI) | payer OTHER, SELFPAY ==
--- NOTE | 2024-08-11 12:43 | BI_ITS ---
MAMMOGRAPHY - BILATERAL SCREENING 3-D TOMOSYNTHESIS REASON FOR EXAM: Female, 53 years old. screening PERTINENT HISTORY: No significant family history. TECHNIQUE: 2-D mammograms and 3-D Tomosynthesis of the breast (s) were performed. CAD was performed. COMPARISON: 07/20/2023 FINDINGS: The breast composition is heterogeneously dense that can obscure small breast masses. Scattered benign calcifications are seen. No dense spiculated masses or suspicious microcalcifications are identified. No architectural distortion is identified. There is no skin thickening or retraction. There has been no significant change since the prior study. BI/SCRN MAMM (CAD)W/BRANDI BILAT IMPRESSION: No mammographic signs of malignancy. Routine yearly mammograms recommended. ASSESSMENT CATEGORY: BIRADS Category 1: Negative. A letter regarding these results will be sent to the patient by the facility within 30 days. FOLLOW UP RECOMMENDATION: Yearly follow up mammogram recommended. (A) Approximately 10% of breast cancers are not detected by mammography. A normal mammogram should not delay biopsy of a clinically suspicious abnormality. Electronically Signed: Arden Polanco MD at 19:57 EST ,
== END | disposition home or self-care (01) ==
LOC: OPBI 12:42
PROVIDERS: Referring Provider Obstetrics & Gynecology; Visit Provider Obstetrics & Gynecology
DX: Z12.31 Encounter for screening mammogram for malignant neoplasm of breast (principal)
CPT/HCPCS: 77063; 77067

== ENCOUNTER 2024-09-13 08:18 | Outpatient (RCR) | payer OTHER, SELFPAY | END 2024-09-15 23:59 | LOC: NS 08:18 | PROVIDERS: Referring Provider Nurse Practitioner Family; Visit Provider Nurse Practitioner Family | DX: Z71.3 Dietary counseling and surveillance (principal); E10.65 Type 1 diabetes mellitus with hyperglycemia | CPT/HCPCS: 97802 ==

== ENCOUNTER 2024-10-11 09:20 | Outpatient (RCR) | payer OTHER, SELFPAY | END 2024-10-13 23:59 | LOC: NS 09:20 | PROVIDERS: Referring Provider Nurse Practitioner Family; Visit Provider Nurse Practitioner Family | DX: Z71.3 Dietary counseling and surveillance (principal); E10.65 Type 1 diabetes mellitus with hyperglycemia | CPT/HCPCS: 97803 ==

== ENCOUNTER 2024-11-07 09:18 | Outpatient (RCR) | payer OTHER, SELFPAY | END 2024-11-13 23:59 | LOC: NS 09:18 | PROVIDERS: Referring Provider Nurse Practitioner Family; Visit Provider Nurse Practitioner Family | DX: Z71.3 Dietary counseling and surveillance (principal); E10.65 Type 1 diabetes mellitus with hyperglycemia | CPT/HCPCS: 97803 ==

== ENCOUNTER 2024-12-11 09:35 | Outpatient (RCR) | payer OTHER, SELFPAY | END 2024-12-13 23:59 | LOC: NS 09:35 | PROVIDERS: Referring Provider Nurse Practitioner Family; Visit Provider Nurse Practitioner Family | DX: Z71.3 Dietary counseling and surveillance (principal); E10.65 Type 1 diabetes mellitus with hyperglycemia | CPT/HCPCS: 97803 ==

== ENCOUNTER 2025-01-16 09:15 | Outpatient (RCR) | payer OTHER, SELFPAY | END 2025-02-12 23:59 | LOC: NS 09:15 | PROVIDERS: PCP Nurse Practitioner Family; Referring Provider Nurse Practitioner Family; Visit Provider Nurse Practitioner Family | DX: Z71.3 Dietary counseling and surveillance (principal); E10.65 Type 1 diabetes mellitus with hyperglycemia | CPT/HCPCS: 97803 ==

== ENCOUNTER → 2025-01-16 | Outpatient (CLI) | payer OTHER, SELFPAY ==
[2025-01-16 12:41] LABS: Hematocrit 44.6 % (37-47); Hemoglobin 14.9 g/dL (12.0-15.0); Mean Corp Hgb Conc 33.4 g/dL (32-36); Mean Corpuscular Hgb 28.2 pg (27.0-32.0); Mean Corpuscular Volume 84.5 fL (81-99); Mean Platelet Vol. 9.8 fl (6.2-12.0); Platelet Count 263 K/mm3 (150-450); RBC Distribution Width CV 12.5 % (11.6-14.6); RBC Distribution Width SD 38.9 fl (35.1-43.9); Red Blood Count 5.28 M/mm3 (4.2-5.4)
[2025-01-16 13:45] LABS: ALB/GLOB Ratio 1.8 RATIO (0.9-2.4); AST(SGOT) 23 U/L (<=31); Alanine Aminotransfer ALT/SGPT 15 U/L (<=34); Albumin, Serum 4.3 g/dL (3.5-5.0); Alkaline Phosphatase 79 U/L (35-104); Anion Gap 10 (5-15); BUN 17 mg/dL (4-19); BUN/Creat Ratio 19.4 RATIO (10-20); Carbon Dioxide 25.8 mmol/L (21.0-32.0); Chloride 103 mmol/L (98-108); Cholesterol 243 mg/dL (<=200); Creatinine, Serum 0.88 mg/dL (0.70-1.20); EST Glomerular Filtration Rate 78 (>60); Globulin 2.4 g/dL (2.2-4.2); Glucose 197 mg/dL (70-99); High Density Lipoprotein 65 mg/dL; Low Density Lipoprotein Calc. 164 mg/dL; Potassium 4.5 mmol/L (3.3-5.1); Protein, Total 6.7 g/dL (5.9-8.4); Sodium Level 139 mmol/L (133-145); Thyroid Stim Hormone (TSH) 0.818 uIU/mL (0.300-4.200); Total Bilirubin 0.86 mg/dL (0.00-1.30); Triglycerides 72 mg/dL; Very Low Density Lipoprotein 14 mg/dL (5-40); cholesterol:hdl ratio screen 3.76
[2025-01-16 13:50] LABS: Microalbumin,Random Urine < 12.0 mg/L (NO RANGE EST.)
[2025-01-16 21:08] LABS: Hemoglobin A1c 7.1 % (<=5.6)
== END | disposition home or self-care (01) ==
LOC: VSLAB 08:48
PROVIDERS: PCP Nurse Practitioner Family; Visit Provider Nurse Practitioner Family
DX: E10.9 Type 1 diabetes mellitus without complications (principal); E03.9 Hypothyroidism, unspecified; E78.5 Hyperlipidemia, unspecified; R35.0 Frequency of micturition
CPT/HCPCS: 36415; 80053; 80061; 82043; 83036; 84439; 84443; 85027; 87086; 87088

== ENCOUNTER 2025-02-20 08:55 | Outpatient (RCR) | payer OTHER, SELFPAY | END 2025-03-15 23:59 | LOC: NS 08:55 | PROVIDERS: PCP Nurse Practitioner Family; Referring Provider Nurse Practitioner Family; Visit Provider Nurse Practitioner Family | DX: Z71.3 Dietary counseling and surveillance (principal); E10.65 Type 1 diabetes mellitus with hyperglycemia | CPT/HCPCS: 97803 ==

== ENCOUNTER → 2025-03-15 | Outpatient (CLI) | payer OTHER, SELFPAY ==
--- NOTE | 2025-03-15 11:55 | RAD_ITS ---
PROCEDURE: KNEE 4 OR MORE VIEWS 03/15/2025 REASON FOR EXAM: PAIN IN RIGHT KNEE TECHNIQUE: KNEE 4 OR MORE VIEWS COMPARISON: No FINDINGS: No acute bone or soft tissue pathology. No arthritic change. RAD/Knee 4 or More Views IMPRESSION: Normal exam Reading Location: [place] [id number]
== END | disposition home or self-care (01) ==
LOC: RAD 11:50
PROVIDERS: PCP Nurse Practitioner Family
DX: M25.561 Pain in right knee (principal)
CPT/HCPCS: 73564

== ENCOUNTER 2025-03-28 10:31 | Outpatient (RCR) | payer OTHER, SELFPAY | END 2025-04-15 23:59 | LOC: NS 10:31 | PROVIDERS: PCP Nurse Practitioner Family; Referring Provider Nurse Practitioner Family; Visit Provider Nurse Practitioner Family | DX: Z71.3 Dietary counseling and surveillance (principal); E10.65 Type 1 diabetes mellitus with hyperglycemia | CPT/HCPCS: 97803 ==

== ENCOUNTER 2025-06-06 10:51 | Outpatient (RCR) | payer OTHER, SELFPAY | END 2025-06-15 23:59 | LOC: NS 10:51 | PROVIDERS: PCP Nurse Practitioner Family; Referring Provider Nurse Practitioner Family; Visit Provider Nurse Practitioner Family | DX: E10.65 Type 1 diabetes mellitus with hyperglycemia (principal) | CPT/HCPCS: 97803 ==

== ENCOUNTER → 2025-08-14 | Outpatient (CLI) | payer OTHER, SELFPAY ==
--- NOTE | 2025-08-14 15:30 | BI_ITS ---
EXAM: SCRN MAMM (CAD)W/BRANDI BILAT DATE: 08/14/2025 CLINICAL HISTORY: F, Age 54 y/o , SCREENING FOR BREAST CANCER TECHNIQUE: Procedure Code: [id number] Modality: MG Procedure: SCRN MAMM (CAD)W/BRANDI BILAT COMPARISON: Prior exam(s) were compared FINDINGS: TISSUE DENSITY: The breasts are heterogeneously dense, which may obscure small masses. Bilateral Breast Mammographic Findings: No significant masses, calcifications or other abnormalities are identified. BI/SCRN MAMM (CAD)W/BRANDI BILAT IMPRESSION: No mammographic evidence of malignancy. OVERALL FINAL ASSESSMENT BI-RADS 1: NEGATIVE. RECOMMENDATION: Routine annual follow-up in 1 Year Additional Recommendation none A letter with findings and recommendations will be mailed to the patient. Reading Location: [id number]
== END | disposition home or self-care (01) ==
PROVIDERS: PCP Nurse Practitioner Family; Referring Provider Obstetrics & Gynecology; Visit Provider Obstetrics & Gynecology
DX: Z12.31 Encounter for screening mammogram for malignant neoplasm of breast (principal)
CPT/HCPCS: 77063; 77067